=== PATIENT | female | born 1980 | race Caucasian/White ===

== ENCOUNTER 2017-11-15 21:11 | Inpatient (IN) | payer MEDICAID ==
[~2017-11-15] VITALS: Ht 157.5 cm; Wt 71.9 kg
[~2017-11-15 21:11] MED LIST: CALC-600 PO; PREN1TAB49 PO
[2017-11-15 21:43] VITALS: Ht 157.5 cm; Wt 71.9 kg
[2017-11-15 21:44] VITALS: BP 128/85; PULSE 73; RESP 18
[2017-11-15] MEDS ORDERED: OXYTOCIN 30 UNITS/LR 500 ML IV SCH ×2 (22:00)
[2017-11-15] MEDS ORDERED: IBUPROFEN 600 MG TAB PO PRN (22:00)
[2017-11-15] MEDS ORDERED: CARBOPROST 250 MCG INJ IM PRN (22:00)
[2017-11-15] MEDS ORDERED: METHYLERGONOVINE 0.2 MG INJ IM PRN (22:00)
[2017-11-15] MEDS ORDERED: LIDOCAINE 1% (MPF) 30 ML INJ INJ PRN (22:00)
[2017-11-15] MEDS ORDERED: OXYTOCIN 30 UNITS/LR 500 ML IV PRN (22:00)
[2017-11-15] MEDS ORDERED: BUTORPHANOL 2 MG INJ IV PRN ×2 (22:00)
[2017-11-15] MEDS ORDERED: MISOPROSTOL 200 MCG TAB PR PRN (22:00)
[2017-11-15] MEDS: LACTATED RINGER'S 1,000 ML IV SCH ×2 (22:07→23:27)
--- NOTE | 2017-11-15 22:12 | TRIAGE ---
OB Triage Datetime Report Generated by CPN: 11/15/2017 22:12 Datetime: 11/15/2017 22:02 Stage of : Labor Membrane Status: Ruptured Membranes Rupture Method: Artificial Amniotic Fluid Color: Clear Amniotic Fluid Amount: Moderate Amniotic Fluid Odor: None Datetime: 11/15/2017 22:01 Stage of : Labor Vaginal Exam Dilatation (cms): 5.5 Exam By: Dr.Miguel Datetime: 11/15/2017 21:57 EGA: 40.0 Datetime: 11/15/2017 21:46 Stage of : Labor Datetime: 11/15/2017 21:25 Stage of : OB Triage Assessment Type: Admission Assessment Maternal Assessment Level of Consciousness: Fully Conscious DTR's/Clonus: DTRs 2+; No Clonus Headache: Denies Blurred Vision: No Respiratory Effort: Unlabored; Regular Rhythm; Equal Expansion Breath Sounds, Left: Clear and Equal Breath Sounds, Right: Clear and Equal Nausea/Vomiting: Denies RUQ Epigastric Pain: Denies Lower Extremities Edema: Bilateral Lower Extremities Degree: None Upper Extremities Edema: None Degree: None Facial Edema: None Temperature Route: Oral Fall Risk Assessment History of Falling: (0) No Secondary Diagnosis: (0) No Ambulatory Aid: (0) Bedrest/Nurse Assist IV Therapy: (0) No Gait: (0) Normal/Bedrest/Immobile Mental Status: (0) Oriented to Own Ability Fall Score: 0 Fall Risk Score Definition: No Risk: No action required Datetime: 11/15/2017 21:15 Time of Arrival: 11/15/2017 21:15 Arrived By: Wheelchair Arrived From: Emergency Dept Movement: Present Contractions: Regular Time Contractions Began: 11/15/2017 17:41 Contractions: 3-5 Rupture of Membranes: Denies Vaginal Bleeding: None Vaginal Discharge: Present Recent Sexual Intercouse: Denies Abdominal Trauma: Not Applicable Patient Complaints: Contractions Time Provider Notified: 11/15/2017 21:30 Provider Notified: Initial Plan: MAYRA, PINKY, ADRIAN
[2017-11-15 22:13] LABS: BASOPHILS % 0.3 % (0.0-2.0); EOSINOPHILS % 0.3 % (0.0-7.0); HEMATOCRIT 31.6 % (37.0-47.0); HEMOGLOBIN 10.5 g/dl (12.0-16.0); LYMPHOCYTES # 1.8 10^3/ul (0.8-2.9); MEAN CORPUSCULAR HGB CONC 33.2 g/dl (32.0-37.0); MEAN CORPUSCULAR VOLUME 93.2 fl (82.0-101.0); MEAN PLATELET VOLUME 11.2 fl (7.4-10.4); MONOCYTE # 0.6 10^3/ul (0.3-0.9); MONOCYTES % 6.7 % (0.0-11.0); NEUTROPHIL # 6.5 10^3/ul (1.6-7.5); NEUTROPHILS % 71.5 % (39.0-77.0); PLATELET COUNT 259 10^3/UL (140-415); RED BLOOD COUNT 3.39 10^6/ul (4.20-5.40); RED CELL DISTRIBUTION WIDTH 13.1 % (11.5-14.5); WHITE BLOOD COUNT 9.1 10^3/ul (4.8-10.8)
--- NOTE | 2017-11-15 22:17 | HP ---
Date/Time of Note Date/Time of Note DATE: 11/15/17 TIME: 22:09 OB - History Hx of Present Free Text/Dictation 37-year-old female 4 para 3 at 40 weeks gestation admitted in active labor started at 1900 p.m. 1224 Last Menstrual Period: Jan 30, 2017 Estimated Due Date: Nov 15, 2017 : 4 Para: 3 Care: Good Care Ultrasounds: Normal mid trimester US Obstetrical Complications: None Medical Complications: None Past Family/Social History * Past Medical, Surgical, Family and Obstetric Histories reviewed from chart. Blood Type: AB+ Rubella: immune RPR/VDRL: Negative GBS Status: Unknown HBsAG: Unknown OB Admission Exam Vital Signs Vital Signs Vital Signs Date Time Temp Pulse Resp B/P Pulse Ox O2 Delivery O2 Flow Rate FiO2 11/15/17 21:44 98.3 73 18 128/85 Room Air Physical Exam HEENT: WNL Heart: Rhythm Normal Lungs: Clear, Equal Abdomen: WNL Extremities: Normal Reflexes: Normal Cervical Dilatation: 4cm Effacement: 75% Station: -3 Membranes: Intact Heart Rate: 140's Accelerations: Accelerations Present Decelerations: No Decelerations Varibility: Marked Contractions on Admission: None Date/Time Contractions Began: 11/15/2017 at 7 PM Frequency of Contractions: Every 3-4 minutes Duration: Over 60 seconds Intensity: Mild OB Assessment/Plan Reason for admission: active labor Other Assessment: Term gestation Plan: Expectant Management Other plan: Proceed with a spontaneous labor Augment labor if necessary CLARA ABREU MD Nov 15, 2017 22:17
[2017-11-15 22:27] LABS: INR 0.9; PROTIME 12.2 Sec (11.9-14.9)
[2017-11-15 22:28] LABS: PARTIAL THROMBOPLASTIN TIME 27.1 Sec (25.0-35.0)
[2017-11-15] MEDS ORDERED: CLINDAMYCIN 900 MG/D5W (PMX) 50 ML IVPB SCH (22:30)
--- NOTE | 2017-11-16 00:35 | LDN ---
Date/Time of Note Date/Time of Note DATE: 11/16/17 TIME: 00:33 Delivery Summary Normal spontaneous vaginal delivery of a viable over intact perineum Weeks of Gestation 40 weeks and 1 day Placenta Delivered: Spontaneously Meconium: none Episiotomy: No Perineal laceration: 0 Laceration repair: Small vulvar laceration on lower portion of the labia minora was reapproximated using 4-0 chromic on SH needle Anesthesia type: Local Estimated blood loss: 300 Sponge & Needle done & correct: Yes All needle counts correct: Yes Any foreign bodies felt in the: No Problems: Infant Delivery Information Sex Sex: female Apgars 1 Minute: 8 5 Minute: 9 Suctioning Nose & mouth suctioned at fidelia: Yes Delee suction performed: No Umbilical Cord Umbilical cord with: 3 Vessels Cord presentations: no nuchal cord Cord Blood was obtained: Yes Mother & Baby Disposition Disposition Mom & Baby to Maternity; Good: Yes (Mother and baby were recovered in good condition) Mom transferred to: Other (Maternity) Baby to NICU: No CLARA ABREU MD Nov 16, 2017 00:35
[2017-11-16 03:05] VITALS: BP 126/78; PULSE 72; RESP 18
[2017-11-16] MEDS: LACTATED RINGER'S 1,000 ML IV* SCH ×2 (03:17→11:17)
[2017-11-16] MEDS ORDERED: HYDROCODONE/APAP (5/325) TAB PO PRN ×2 (03:30)
[2017-11-16] MEDS ORDERED: BENZOCAINE 20% 56 ML SPRAY TOP PRN (03:30)
[2017-11-16] MEDS ORDERED: LANOLIN 7 GM TUBE TOP PRN (03:30)
[2017-11-16] MEDS ORDERED: METHYLERGONOVINE 0.2 MG INJ IM PRN (03:30)
[2017-11-16] MEDS ORDERED: MISOPROSTOL 200 MCG TAB PR PRN (03:30)
[2017-11-16] MEDS ORDERED: CARBOPROST 250 MCG INJ IM PRN (03:30)
[2017-11-16] MEDS ORDERED: DIBUCAINE 1% 30 GM OINT PR PRN (03:30)
[2017-11-16] MEDS ORDERED: OXYTOCIN 30 UNITS/LR 500 ML IV PRN (03:30)
[2017-11-16] MEDS ORDERED: WITCH HAZEL/GLYCERIN PAD PR PRN (03:30)
[2017-11-16] MEDS ORDERED: ZOLPIDEM 5 MG TAB PO PRN (03:30)
[2017-11-16] MEDS: IBUPROFEN 600 MG TAB PO SCH ×4 (05:33→23:49)
[2017-11-16 08:00] VITALS: PULSE 86; RESP 17
[2017-11-16 09:03] LABS: BASOPHILS % 0.2 % (0.0-2.0); EOSINOPHILS % 0.1 % (0.0-7.0); HEMATOCRIT 28.8 % (37.0-47.0); HEMOGLOBIN 9.7 g/dl (12.0-16.0); LYMPHOCYTES # 1.6 10^3/ul (0.8-2.9); LYMPHOCYTES % 10.8 % (15.0-51.0); MEAN CORPUSCULAR HEMOGLOBIN 31.4 pg (29.0-33.0); MEAN CORPUSCULAR HGB CONC 33.7 g/dl (32.0-37.0); MEAN CORPUSCULAR VOLUME 93.2 fl (82.0-101.0); MEAN PLATELET VOLUME 11.2 fl (7.4-10.4); MONOCYTE # 0.8 10^3/ul (0.3-0.9); MONOCYTES % 5.8 % (0.0-11.0); NEUTROPHIL # 11.8 10^3/ul (1.6-7.5); NEUTROPHILS % 82.2 % (39.0-77.0); PLATELET COUNT 223 10^3/UL (140-415); RED BLOOD COUNT 3.09 10^6/ul (4.20-5.40); RED CELL DISTRIBUTION WIDTH 13.2 % (11.5-14.5); WHITE BLOOD COUNT 14.3 10^3/ul (4.8-10.8)
[2017-11-16] MEDS: SENNA/DOCUSATE NA (8.6MG/50MG) TAB PO SCH ×2 (09:26→21:08)
[2017-11-16] MEDS: MAGNESIUM HYDROXIDE 30ML CUP PO SCH ×2 (09:26→21:08)
[2017-11-16 16:00] VITALS: BP 113/83; PULSE 64; RESP 16
[2017-11-16 20:10] VITALS: BP 119/69; PULSE 72; RESP 18
--- NOTE | 2017-11-16 20:51 | PN ---
Date/Time of Note Date/Time of Note DATE: 11/16/17 TIME: 20:48 OB Subjective Subjective Subjective November 16, 2017 Post day 12 Doing Well Afebrile Ambulatory Chest Clear Breasts are soft , Nipples are intact Abdomen is soft Fundus is firm Moderate amount of lochia Vulvo-vaginal laceration is healing ,No evidence of infection No calf tenderness No ankle edema Laboratory Tests Test 11/15/17 21:45 11/16/17 08:21 White Blood Count 9.110^3/ul 14.310^3/ul Red Blood Count 3.3910^6/ul 3.0910^6/ul Hemoglobin 10.5g/dl 9.7g/dl Hematocrit 31.6% 28.8% Mean Corpuscular Volume 93.2fl 93.2fl Mean Corpuscular Hemoglobin 31.0pg 31.4pg Mean Corpuscular Hemoglobin Concent 33.2g/dl 33.7g/dl Red Cell Distribution Width 13.1% 13.2% Platelet Count 12721^3/UL 38643^3/UL Mean Platelet Volume 11.2fl 11.2fl Neutrophils % 71.5% 82.2% Lymphocytes % 20.0% 10.8% Monocytes % 6.7% 5.8% Eosinophils % 0.3% 0.1% Basophils % 0.3% 0.2% Nucleated Red Blood Cells % 0.0/100WBC 0.0/100WBC Neutrophils # 6.510^3/ul 11.810^3/ul Lymphocytes # 1.810^3/ul 1.610^3/ul Monocytes # 0.610^3/ul 0.810^3/ul Eosinophils # 0.010^3/ul 0.010^3/ul Basophils # 0.010^3/ul 0.010^3/ul Nucleated Red Blood Cells # 0.010^3/ul 0.010^3/ul Prothrombin Time 12.2Sec Prothrombin Time Ratio 1.0 INR International Normalized Ratio 0.90 Activated Partial Thromboplast Time 27.1Sec Hepatitis B Surface Antigen NEGATIVE Current Medications Medications (Trade) Dose Ordered Sig/Prosper Route PRN Reason Start Time Stop Time Status Last Admin Dose Admin Lactated Ringer's (Lr) 1,000 ml @ 125 mls/hr Q8H IV 11/15/17 21:39 11/16/17 03:19 DC 11/15/17 23:27 Butorphanol Tartrate (Stadol) 1 mg Q2H PRN IV PAIN 11/15/17 22:00 11/16/17 03:19 DC Butorphanol Tartrate (Stadol) 2 mg Q2H PRN IV PAIN 11/15/17 22:00 11/16/17 03:19 DC Lidocaine 30 ml 30 ml ONCE PRN INJ EPISIOTOMY/TEARING 11/15/17 22:00 11/16/17 03:19 DC Oxytocin/Lactated Ringer's 500 ml @ 500 mls/hr ONCE POST IV 11/15/17 22:00 11/16/17 03:18 DC 11/16/17 01:32 Oxytocin/Lactated Ringer's 500 ml @ 125 mls/hr POST IV 11/15/17 22:00 11/16/17 03:18 DC Ibuprofen 600 mg 600 mg ONCE PRN PO Mild Pain (Pain Score 1-3) 11/15/17 22:00 11/16/17 03:18 DC 11/16/17 00:38 Oxytocin/Lactated Ringer's 500 ml @ 0 mls/hr ONCE PRN IV For Hemorrhage Management 11/15/17 22:00 11/16/17 03:18 DC 11/15/17 23:26 Methylergonovine Maleate (Methergine) 0.2 mg ONCE PRN IM VAGINAL BLEEDING 11/15/17 22:00 11/16/17 03:18 DC Carboprost Tromethamine (Hemabate) 250 mcg ONCE PRN IM VAGINAL BLEEDING 11/15/17 22:00 11/16/17 03:18 DC Misoprostol 1000 mcg 1,000 mcg ONCE PRN ME VAGINAL BLEEDING 11/15/17 22:00 11/16/17 03:18 DC Clindamycin HCl/ Dextrose 50 ml @ 50 mls/hr ONCE IVPB 11/15/17 22:30 11/15/17 23:29 DC 11/15/17 22:55 Lactated Ringer's (Lr) 1,000 ml @ 125 mls/hr Q8H IV* 11/16/17 03:17 11/16/17 13:59 DC 11/16/17 03:17 Ibuprofen (Motrin) 600 mg Q6 PO 11/16/17 06:00 11/16/17 17:38 Acetaminophen/ Hydrocodone Bitart ([place] (5/325)) 1 tab Q4H PRN PO PAIN LEVEL 1-5 11/16/17 03:30 Acetaminophen/ Hydrocodone Bitart ([place] (5/325)) 2 tab Q4H PRN PO PAIN LEVEL 6-10 11/16/17 03:30 Zolpidem Tartrate (Ambien) 5 mg QHS PRN PO INSOMNIA 11/16/17 03:30 Senna/Docusate Sodium (Senokot-S) 1 tab BID PO 11/16/17 09:00 11/16/17 09:26 Magnesium Hydroxide (Milk Of Mag) 30 ml Q12 PO 11/16/17 09:00 11/16/17 09:26 Witch Mireya/ Glycerin (Tucks Pads) 1 pad BEDSIDE MEDICATION PRN ME HEMORRHOID/EPISIOTMY PAIN 11/16/17 03:30 11/16/17 12:36 Benzocaine (Dermoplast [place]) 1 spray BEDSIDE MEDICATION PRN TOP HEMORRHOID/EPISIOTMY PAIN 11/16/17 03:30 11/16/17 12:37 Dibucaine (Nupercainal) 1 applic BEDSIDE MEDICATION PRN ME HEMORRHOID/EPISIOTMY PAIN 11/16/17 03:30 11/16/17 12:37 Lanolin (Jon-B-Wyvxda) 1 applic BEDSIDE MEDICATION PRN TOP BEDSIDE FOR [place] TO NIPPLES 11/16/17 03:30 11/16/17 12:37 Measles/Mumps/ Rubella Vaccine Live (Mmr Ii Vaccine) 0.5 ml ONCE ONCE SC* 11/18/17 09:00 11/18/17 09:01 Diphtheria/ Tetanus/Acell Pertussis (Adacel) 0.5 ml ONCE ONCE IM* 11/18/17 09:00 11/18/17 09:01 Varicella Virus Vaccine Live 1350 unit 1,350 unit ONCE ONCE SC* 11/18/17 09:00 11/18/17 09:01 Oxytocin/Lactated Ringer's 500 ml @ 0 mls/hr ONCE PRN IV For Hemorrhage Management 11/16/17 03:30 Methylergonovine Maleate (Methergine) 0.2 mg ONCE PRN IM VAGINAL BLEEDING 11/16/17 03:30 Carboprost Tromethamine (Hemabate) 250 mcg ONCE PRN IM VAGINAL BLEEDING 11/16/17 03:30 Misoprostol (Cytotec) 1,000 mcg ONCE PRN ME VAGINAL BLEEDING 11/16/17 03:30 New born is doing well, Breast feeding REHSMA STAFFORD MD Nov 16, 2017 20:51
[2017-11-17 04:15] VITALS: BP 115/67; PULSE 70; RESP 18
[2017-11-17] MEDS: IBUPROFEN 600 MG TAB PO SCH ×4 (05:27→23:39)
[2017-11-17 08:30] VITALS: BP 112/71; PULSE 66
[2017-11-17] MEDS: SENNA/DOCUSATE NA (8.6MG/50MG) TAB PO SCH ×2 (09:00→21:00)
[2017-11-17] MEDS: MAGNESIUM HYDROXIDE 30ML CUP PO SCH ×2 (09:00→21:00)
--- NOTE | 2017-11-17 11:15 | DS ---
Date/Time of Note Date/Time of Note DATE: 11/17/17 TIME: 11:14 Obstetrical Discharge Record Final Diagnosis Final Diagnosis: Term delivered Vaginal Delivery Obstetrical Delivery: Spontaneous, Laceration, Repaired Complications Augmentation: Yes Condition on Discharge Physical Assessment Last Vitals: see nurses notes Voiding: Yes Bowel Movement: Yes Breast: Soft, non-tender, Filling Fundus: Firm Abdomen and Incision: soft BS + fundus: firm Episiotomy: perineum is clean Calf Tenderness: No Patient Condition: Good CLARA ABREU MD Nov 17, 2017 11:15
--- NOTE | 2017-11-17 11:17 | PD.PPDC ---
STERILIZATION TECHNICIAN Discharge Instruction Provider Information Physician Information 37 y/o female had vaginal delivery Diagnosis Final Diagnosis: S/P vaginal delivery Condition Patient Condition: Good Diet Diet: Resume Regular Diet Activity/Restrictions Activity: Normal Activity May Shower Restrictions: Nothing in the Vagina Return to Work or School: Jan 04, 2018 Follow-up Follow-up with Physician: 4, Week/Weeks (In clinic) Return to clinic for OB Instructions: Breast Tenderness Depression Comment: pelvic rest X 6 weeks CLARA ABREU MD Nov 17, 2017 11:17
[2017-11-17] MEDS ORDERED: IBUP-1542 PO (11:19)
[2017-11-17 14:51] LABS: BASOPHIL # 0.1 10^3/ul (0.0-0.1); BASOPHILS % 0.5 % (0.0-2.0); EOSINOPHILS # 0.1 10^3/ul (0.0-0.5); EOSINOPHILS % 0.9 % (0.0-7.0); HEMOGLOBIN 10.4 g/dl (12.0-16.0); LYMPHOCYTES # 2.1 10^3/ul (0.8-2.9); LYMPHOCYTES % 22.6 % (15.0-51.0); MEAN CORPUSCULAR HEMOGLOBIN 30.6 pg (29.0-33.0); MEAN CORPUSCULAR HGB CONC 32.5 g/dl (32.0-37.0); MEAN CORPUSCULAR VOLUME 94.1 fl (82.0-101.0); MEAN PLATELET VOLUME 10.8 fl (7.4-10.4); MONOCYTE # 0.4 10^3/ul (0.3-0.9); MONOCYTES % 4.3 % (0.0-11.0); NEUTROPHIL # 6.6 10^3/ul (1.6-7.5); PLATELET COUNT 257 10^3/UL (140-415); RED CELL DISTRIBUTION WIDTH 13.8 % (11.5-14.5); WHITE BLOOD COUNT 9.4 10^3/ul (4.8-10.8)
[2017-11-17 16:00] VITALS: BP 110/62; PULSE 83; RESP 18
[2017-11-17 19:40] VITALS: BP 118/83; PULSE 73; RESP 19
[2017-11-18 04:00] VITALS: BP 110/63; PULSE 67; RESP 20
[2017-11-18] MEDS: IBUPROFEN 600 MG TAB PO SCH ×2 (05:48→12:03)
[2017-11-18 08:00] VITALS: BP 118/68; PULSE 85; RESP 18
[2017-11-18] MEDS: SENNA/DOCUSATE NA (8.6MG/50MG) TAB PO SCH (09:00)
[2017-11-18] MEDS: MAGNESIUM HYDROXIDE 30ML CUP PO SCH (09:00)
[2017-11-18] MEDS ORDERED: MEASLES,MUMPS,RUBELLA VACCINE INJ SC* ONE (09:00)
[2017-11-18] MEDS ORDERED: VARICELLA VACCINE LIVE/PF 1,350 UNIT/0.5 ML ML SC* ONE (09:00)
[2017-11-18] MEDS ORDERED: DIPHTH/TET/ACEL PERTUSS (ADULT) 0.5 ML VIAL IM* ONE (09:00)
== END 2017-11-18 15:00 | disposition home or self-care (01) | DRG 775 ==
LOC: L-D 21:11 → OBT 21:11 → L-D 21:30 → OBT 21:30 → PP1 11-16 02:54
PROVIDERS: ADMIT Obstetrics & Gynecology; ATTEND Obstetrics & Gynecology
PROC: 10E0XZZ Delivery of Products of Conception, External Approach (ICD-10-PCS; principal; 2017-11-16)
PROC: 0HQ9XZZ Repair Perineum Skin, External Approach (ICD-10-PCS; 2017-11-16)
DX: O70.0 First degree perineal laceration during delivery (principal); Z37.0 Single live birth; Z3A.40 40 weeks gestation of pregnancy
CPT/HCPCS: 85025; 85610; 85730; 86592; 86900; 86901; 87340; 90715; 90716; G0463; J2590; J7120